=== PATIENT | female | born 1985 | race Caucasian/White ===

== ENCOUNTER 2016-08-21 01:29 | Emergency (ER) | payer MEDICAID ==
[~2016-08-21] VITALS: Ht 175.3 cm; Wt 65.8 kg
[~2016-08-21 01:29] MED LIST: ASPI-1063 PO
[2016-08-21 01:30] VITALS: BP 120/83; PULSE 105; RESP 20; TEMP 99.1; O2SAT 99
--- NOTE | 2016-08-21 01:30 | NUR ---
Patient to ER bed 8 to gown for evaluation. Side rails up. Report given to Murali BRENNAN.
--- NOTE | 2016-08-21 01:40 | NUR ---
Pt states that she has been having a cough for a month and been having R flank pain for five days. Will continue to monitor. No other injuries or complaints mentioned/noted. No distress noted.
--- NOTE | 2016-08-21 01:50 | NUR ---
ER Dr. Anguiano at bedside examining patient.
[2016-08-21 02:31] LABS: BILIRUBIN,URINE NEGATIVE (NEGATIVE); BLOOD, URINE NEGATIVE (NEGATIVE); CLARITY/URINE CLEAR (CLEAR); COLOR,URINE YELLOW (YELLOW); GLUCOSE,URINE NEGATIVE (NEGATIVE); KETONES,URINE NEGATIVE (NEGATIVE); LEUKOCYTE ESTERASE ,URINE NEGATIVE (NEGATIVE); NITRITE, URINE NEGATIVE (NEGATIVE); PROTEIN URINE NEGATIVE (NEGATIVE); UROBILINOGEN,URINE 0.2 (0.2-1.0)
[2016-08-21 02:52] VITALS: BP 120/83; PULSE 105; RESP 20; TEMP 99.1; O2SAT 99
--- NOTE | 2016-08-21 02:52 | NUR ---
Patient given written and verbal discharge instructions and verbalizes understanding. ER MD discussed with patient the results and treatment provided. Patient in stable condition. ID arm band removed. Rx of Motrin and promethazine/Dextromethorphan given. Patient educated on pain management and to follow up with PMD. Pain Scale 2/10. Opportunity for questions provided and answered.
== END 2016-08-21 02:52 | disposition home or self-care (01) ==
LOC: SED 01:29
DX: R07.81 Pleurodynia (principal); R05 Cough; R03.0 Elevated blood-pressure reading, without diagnosis of hypertension; J45.909 Unspecified asthma, uncomplicated; G43.909 Migraine, unspecified, not intractable, without status migrainosus; Z88.0 Allergy status to penicillin; Z91.02 Food additives allergy status
CPT/HCPCS: 71010; 71100; 81003; 99285

== ENCOUNTER 2016-12-17 10:09 | Emergency (ER) | payer MEDICAID ==
[~2016-12-17] VITALS: Ht 175.3 cm; Wt 61.2 kg
[2016-12-17 10:22] VITALS: BP_SYST 111
== END 2016-12-17 13:15 | disposition home or self-care (01) ==
LOC: SED 10:09
DX: M54.5 Low back pain (principal); M54.2 Cervicalgia; J45.909 Unspecified asthma, uncomplicated; G43.909 Migraine, unspecified, not intractable, without status migrainosus; Z86.73 Personal history of transient ischemic attack (TIA), and cerebral infarction without residual deficits
CPT/HCPCS: 71020; 99284; J7030

== ENCOUNTER 2017-05-30 21:48 | Emergency (ER) | payer MEDICAID ==
[~2017-05-30] VITALS: Ht 175.3 cm; Wt 69.4 kg
[2017-05-30 22:00] VITALS: BP_SYST 127
--- NOTE | 2017-05-30 22:00 | NUR ---
Patient to ER bed 4 to gown for evaluation. Side rails up. Report given to ANU SALEEM.
--- NOTE | 2017-05-30 22:12 | NUR ---
Pt came into the ER in stable condition. Pt c/o +N/V x9 days. Pt stated that she is currently 15 wks and was seen by OB last . Pt stated that she did not mention +N/V to OB and has not taken anything for vomiting. Pt stated that this is her first . -sob -chest pain. No acute distress noted at this time, will continue to monitor.
[2017-05-30] MEDS ORDERED: NACL 0.9% 1,000 ML IV ONE (22:15)
[2017-05-30] MEDS ORDERED: ONDANSETRON HCL 4 MG/2 ML VIAL IVP ONE (22:15)
--- NOTE | 2017-05-30 22:21 | NUR ---
ER at bedside examining patient.
[2017-05-30 22:49] LABS: BASOPHILS # (AUTO) 0.1 K/uL (0.0-0.2); BASOPHILS % (AUTO) 0.5 % (0.0-2.0); HEMOGLOBIN 14.2 g/dL (12.0-16.0); MEAN CORPUSCULAR HEMOGLOBIN 31 pg (27-31); MEAN CORPUSCULAR HGB CONC 33 % (32-36); MEAN CORPUSCULAR VOLUME 94 fL (79.0-98.0); MONOCYTES # (AUTO) 0.7 K/uL (0.0-1.0); RED CELL DISTRIBUTION WIDTH 12.6 % (9.0-15.0)
[2017-05-30 22:53] LABS: EOSINOPHILS # (AUTO) 0.2 K/uL (0.0-0.4); EOSINOPHILS % (AUTO) 1.6 % (0.0-4.0); HEMATOCRIT 42.4 % (36-48); LYMPHOCYTES # (AUTO) 2.1 K/uL (1.0-5.5); LYMPHOCYTES % (AUTO) 18.6 % (20.5-51.5); MONOCYTES % (AUTO) 6.4 % (1.7-9.3); NEUTROPHILS % (AUTO) 72.9 % (40.0-70.0); PLATELET COUNT (AUTO) 253 K/uL (130-430); RED BLOOD CELL COUNT(AUTO) 4.54 MIL/uL (4.2-6.2); WHITE BLOOD COUNT (AUTO) 11.1 K/uL (4.8-10.8)
[2017-05-30 23:00] LABS: CALCIUM 9.5 mg/dL (8.4-11.0); CREATININE 0.69 mg/dL (0.55-1.30); POTASSIUM 3.8 mmol/L (3.5-5.1)
[2017-05-30 23:04] LABS: BILIRUBIN,URINE NEGATIVE (NEGATIVE); BLOOD, URINE NEGATIVE (NEGATIVE); CLARITY/URINE CLEAR (CLEAR); COLOR,URINE YELLOW (YELLOW); GLUCOSE,URINE NEGATIVE (NEGATIVE); KETONES,URINE NEGATIVE (NEGATIVE); LEUKOCYTE ESTERASE ,URINE NEGATIVE (NEGATIVE); NITRITE, URINE NEGATIVE (NEGATIVE); PROTEIN URINE NEGATIVE (NEGATIVE); UROBILINOGEN,URINE 0.2 (0.2-1.0)
[2017-05-30 23:04] LABS: ALBUMIN 3.7 g/dL (3.4-4.8); TOTAL BILIRUBIN 0.2 mg/dL (0.0-1.0)
--- NOTE | 2017-05-30 23:18 | NUR ---
heart tones assessed with doppler at bedside: 160bpm. MD Dr. Johnson aware.
[2017-05-31 00:03] VITALS: BP_SYST 119
--- NOTE | 2017-05-31 00:03 | NUR ---
Patient given written and verbal discharge instructions and verbalizes understanding. ER MD WELLS discussed with patient the results and treatment provided. Patient in stable condition. ID arm band removed. IV catheter removed intact and dressing applied, no active bleeding. Rx of ZOFRAN given. Patient educated on pain management and to follow up with PMD. Pain Scale 0/10. Opportunity for questions provided and answered.
== END 2017-05-31 00:03 | disposition home or self-care (01) ==
LOC: SED 21:48
DX: O21.0 Mild hyperemesis gravidarum (principal); G43.909 Migraine, unspecified, not intractable, without status migrainosus; J45.909 Unspecified asthma, uncomplicated; Z3A.15 15 weeks gestation of pregnancy; Z88.0 Allergy status to penicillin; Z91.018 Allergy to other foods; Z86.73 Personal history of transient ischemic attack (TIA), and cerebral infarction without residual deficits
CPT/HCPCS: 36415; 80053; 81003; 81025; 82150; 83690; 84702; 85025; 96361; 96374; 99284; J2405; J7030

== ENCOUNTER 2017-08-01 19:20 | Observation (INO) | payer MEDICAID ==
[~2017-08-01] VITALS: Ht 175.3 cm; Wt 74.4 kg
[2017-08-01] MEDS ORDERED: NALBUPHINE HCL 10 MG/ML AMP IM PRN (20:45)
[2017-08-01 21:31] LABS: BILIRUBIN,URINE NEGATIVE (NEGATIVE); BLOOD, URINE NEGATIVE (NEGATIVE); CLARITY/URINE CLEAR (CLEAR); COLOR,URINE YELLOW (YELLOW); GLUCOSE,URINE NEGATIVE (NEGATIVE); KETONES,URINE 1+ (NEGATIVE); LEUKOCYTE ESTERASE ,URINE NEGATIVE (NEGATIVE); NITRITE, URINE NEGATIVE (NEGATIVE); PROTEIN URINE NEGATIVE (NEGATIVE); UROBILINOGEN,URINE 0.2 (0.2-1.0)
== END 2017-08-01 21:25 | disposition home or self-care (01) ==
LOC: SPU 19:20
PROVIDERS: ADMIT Specialist; ATTEND Specialist
DX: O26.892 Other specified pregnancy related conditions, second trimester (principal); R10.32 Left lower quadrant pain; Z3A.24 24 weeks gestation of pregnancy
CPT/HCPCS: 81003; G0378; 81002-TC

== ENCOUNTER 2018-08-05 14:30 | Emergency (ER) | payer MEDICAID ==
[~2018-08-05] VITALS: Ht 170.2 cm; Wt 59.0 kg
[~2018-08-05 14:30] MED LIST changes: -ASPI-1063 PO; +ASPI-1154 PO
--- NOTE | 2018-08-05 14:30 | NUR ---
Patient to ER bed TRIAGE ROOM for evaluation. Side rails up.
--- NOTE | 2018-08-05 14:31 | NUR ---
Pt AAOx4 ambulated into ED c/o burning sensation to upper back radiating to her posterior neck and head x a few days with new onset rash to back today, reports mild recent nasal congestion. Pt denies n/v/d/chest pain/fever. No other injuries/complaints per pt/noted. Will continue to monitor.
[2018-08-05 14:32] VITALS: BP_SYST 138
--- NOTE | 2018-08-05 14:32 | NUR ---
ER PA LUIS ANTONIO examining patient in triage room
--- NOTE | 2018-08-05 14:48 | NUR ---
Patient given written and verbal discharge instructions and verbalizes understanding. SHINE Galdamez discussed with patient the results and treatment provided. Patient in stable condition. ID arm band removed. Rx of Gabapentin, Acyclovir, Ibuprofen given. Patient educated on pain management and to follow up with PMD. Pain Scale 2. Opportunity for questions provided and answered. Medication side effect fact sheet provided.
[2018-08-05 14:49] VITALS: BP_SYST 124
== END 2018-08-05 14:49 | disposition home or self-care (01) ==
LOC: SED 14:30
DX: B02.9 Zoster without complications (principal); R21 Rash and other nonspecific skin eruption; R03.0 Elevated blood-pressure reading, without diagnosis of hypertension; J45.909 Unspecified asthma, uncomplicated; G43.909 Migraine, unspecified, not intractable, without status migrainosus; Z86.73 Personal history of transient ischemic attack (TIA), and cerebral infarction without residual deficits; Z88.0 Allergy status to penicillin; Z91.018 Allergy to other foods
CPT/HCPCS: 99283

== ENCOUNTER 2021-05-07 16:10 | Emergency (ER) | payer OTHER, MEDICAID, SELFPAY ==
[~2021-05-07] VITALS: Ht 177.8 cm; Wt 72.6 kg
[~2021-05-07 16:10] MED LIST changes: -ASPI-1154 PO; +ASPI-1457 PO
--- NOTE | 2021-05-07 16:15 | NUR ---
Pt brought by self, A&Ox4, pt presents to ER with pain in the sternum radiating to the back, skin pink and warm,cap refill <3, VSS, respirations even and unlabored, will cont to monitor.
[2021-05-07 16:25] VITALS: BP_SYST 157
--- NOTE | 2021-05-07 16:30 | NUR ---
Dr Leahy evaluating patient at bedside
--- NOTE | 2021-05-07 17:15 | NUR ---
Pt A&Ox4, VSS, respirations even and unlabored, cap refill <3.
[2021-05-07 17:20] LABS: BASOPHILS % (AUTO) 0.3 % (0.0-2.0); HEMATOCRIT 42.6 % (36-48); HEMOGLOBIN 14.3 g/dL (12.0-16.0); LYMPHOCYTES # (AUTO) 1.5 K/uL (1.0-5.5); LYMPHOCYTES % (AUTO) 13.6 % (20.5-51.5); MEAN CORPUSCULAR HEMOGLOBIN 31 pg (27-31); MEAN CORPUSCULAR HGB CONC 34 % (32-36); MEAN CORPUSCULAR VOLUME 93 fL (79.0-98.0); MONOCYTES % (AUTO) 9.1 % (1.7-9.3); NEUTROPHILS # (AUTO) 8.4 K/uL (1.8-7.7); PLATELET COUNT (AUTO) 264 K/uL (130-430); RED CELL DISTRIBUTION WIDTH 12.7 % (9.0-15.0)
[2021-05-07 17:35] LABS: CREATININE 0.97 mg/dL (0.55-1.30)
[2021-05-07 17:40] LABS: ALBUMIN 4.5 g/dL (3.4-4.8); TOTAL BILIRUBIN 0.5 mg/dL (0.0-1.0)
[2021-05-07 17:58] LABS: AMYLASE 53 U/L (0-100); LIPASE 59 U/L (73-393)
[2021-05-07 17:59] LABS: BILIRUBIN,URINE NEGATIVE (NEGATIVE); BLOOD, URINE NEGATIVE (NEGATIVE); CLARITY/URINE CLEAR (CLEAR); COLOR,URINE YELLOW (YELLOW); GLUCOSE,URINE NEGATIVE (NEGATIVE); KETONES,URINE NEGATIVE (NEGATIVE); LEUKOCYTE ESTERASE ,URINE NEGATIVE (NEGATIVE); NITRITE, URINE NEGATIVE (NEGATIVE); PH,URINE 7.5 (5.0-8.0); PROTEIN URINE NEGATIVE (NEGATIVE); UROBILINOGEN,URINE 0.2 (0.2-1.0)
[2021-05-07] MEDS ORDERED: OMEP20CA15 PO (18:36)
[2021-05-07 19:45] VITALS: BP_SYST 142
--- NOTE | 2021-05-07 19:47 | NUR ---
Patient given written and verbal discharge instructions and verbalizes understanding. ER MD discussed with patient the results and treatment provided. Patient in stable condition. ID arm band removed. Rx of Omeprazole given. Patient educated on pain management and to follow up with PMD. Pain Scale 2/10 . Opportunity for questions provided and answered. Medication side effect fact sheet provided.
== END 2021-05-07 19:47 | disposition home or self-care (01) ==
LOC: SED 16:10
DX: K21.9 Gastro-esophageal reflux disease without esophagitis (principal); J45.909 Unspecified asthma, uncomplicated; Z88.0 Allergy status to penicillin; Z91.018 Allergy to other foods; Z79.899 Other long term (current) drug therapy
CPT/HCPCS: 36415; 71045; 76700-TC; 80053; 81003; 81025; 82150; 83605; 83690; 84484; 84703; 85025; 99285